=== PATIENT | female | born 1985 | race Caucasian/White ===

== ENCOUNTER 2018-01-02 17:50 | Emergency (ER) | payer OTHER ==
[~2018-01-02] VITALS: Ht 157.5 cm; Wt 63.6 kg
[~2018-01-02 17:50] MED LIST: COD30 PO; GUAI120S17 PO; IBUP-2354 PO
[2018-01-02] MEDS: LIDOCAINE HCL 1% 10 ML VIAL INJ ONE (20:05)
[2018-01-02] MEDS: POVIDONE-IODINE 10% 15 ML SOLUTION UD TP ONE (20:29)
[2018-01-02 21:29] VITALS: BP 147/88
== END 2018-01-02 21:55 | disposition home or self-care (01) ==
LOC: EMS 17:51
DX: L02.212 Cutaneous abscess of back [any part, except buttock and flank] (principal); L03.312 Cellulitis of back [any part except buttock and flank]
CPT/HCPCS: 10060; 99283; J3490

== ENCOUNTER 2018-01-04 13:28 | Emergency (ER) | payer OTHER ==
[~2018-01-04] VITALS: Ht 157.5 cm; Wt 80.0 kg
[2018-01-04] MEDS ORDERED: LIDOCAINE HCL 1% 10 ML VIAL INJ ONE (14:30)
[2018-01-04] MEDS ORDERED: CEPHALEXIN MONOHYDRATE 500 MG CAPSULE PO ONE (14:30)
[2018-01-04] MEDS ORDERED: SULFAMETHOX/TRIMETH DS 800-160 MG/TABLET PO ONE (14:30)
[2018-01-04] MEDS ORDERED: POVIDONE-IODINE 10% 15 ML SOLUTION UD TP ONE (14:45)
[2018-01-04 15:30] VITALS: BP 105/59
== END 2018-01-04 15:31 | disposition home or self-care (01) ==
LOC: EMS 13:34
DX: L02.212 Cutaneous abscess of back [any part, except buttock and flank] (principal); Z76.0 Encounter for issue of repeat prescription
CPT/HCPCS: 10060; 99283; J3490

== ENCOUNTER 2018-01-07 14:24 | Emergency (ER) | payer OTHER ==
[~2018-01-07] VITALS: Ht 152.4 cm; Wt 59.1 kg
[2018-01-07 17:08] VITALS: BP 131/74
== END 2018-01-07 17:23 | disposition home or self-care (01) ==
LOC: EMS 14:26
DX: Z48.00 Encounter for change or removal of nonsurgical wound dressing (principal)
CPT/HCPCS: 99281

== ENCOUNTER 2018-06-22 19:33 | Observation (INO) | payer OTHER ==
[~2018-06-22] VITALS: Ht 152.4 cm; Wt 69.9 kg
[2018-06-22 20:49] VITALS: BP 144/96
[2018-06-22] MEDS ORDERED: ASPI-556 PO (20:56)
[2018-06-22] MEDS ORDERED: PNV11TAB PO (20:57)
== END 2018-06-22 21:50 | disposition home or self-care (01) ==
LOC: EMS 19:33 → INTOOBSV 20:00 → 4S 20:00
PROVIDERS: ADMIT Obstetrics & Gynecology; ATTEND Obstetrics & Gynecology
DX: O36.8120 Decreased fetal movements, second trimester, not applicable or unspecified (principal); O99.342 Other mental disorders complicating pregnancy, second trimester; F41.9 Anxiety disorder, unspecified; Z3A.24 24 weeks gestation of pregnancy
CPT/HCPCS: 80307 ×8; 87077; 87086; G0378

== ENCOUNTER 2019-04-14 05:27 | Emergency (ER) | payer OTHER ==
[~2019-04-14] VITALS: Ht 152.4 cm; Wt 65.9 kg
[~2019-04-14 05:27] MED LIST changes: +ASPI-556 PO; -COD30 PO; -GUAI120S17 PO; -IBUP-2354 PO; +PNV11TAB PO
[2019-04-14 06:52] VITALS: BP 129/83
[2019-04-14] MEDS ORDERED: IBUPROFEN 400 MG TABLET PO ONE (07:00)
[2019-04-14] MEDS ORDERED: ACETAMINOPHEN 500 MG TABLET PO ONE (07:00)
== END 2019-04-14 07:55 | disposition home or self-care (01) ==
LOC: EMS 05:27
DX: S52.511A Displaced fracture of right radial styloid process, initial encounter for closed fracture (principal); W01.0XXA Fall on same level from slipping, tripping and stumbling without subsequent striking against object, initial encounter; Y93.89 Activity, other specified; Y92.89 Other specified places as the place of occurrence of the external cause; Y99.0 Civilian activity done for income or pay

== ENCOUNTER 2025-06-02 11:35 | Emergency (ER) | payer OTHER ==
[~2025-06-02] VITALS: Ht 152.4 cm; Wt 74.0 kg
[2025-06-02 11:43] VITALS: BP 135/87; PULSE 103; RESP 18; TEMP 98.2; O2SAT 98
[2025-06-02] MEDS: ACETAMINOPHEN 325 MG TABLET PO ONE (12:28)
[2025-06-02] MEDS: IBUPROFEN 600 MG TABLET PO ONE (12:29)
[2025-06-02] MEDS: CEPHALEXIN MONOHYDRATE 500 MG CAPSULE PO ONE (12:29)
[2025-06-02] MEDS ORDERED: CEPH-558 PO (12:39)
== END 2025-06-02 13:09 | disposition home or self-care (01) ==
LOC: EMS 11:35
DX: S62.91XB Unspecified fracture of right hand, initial encounter for open fracture (principal); L03.112 Cellulitis of left axilla; X58.XXXA Exposure to other specified factors, initial encounter; Y93.89 Activity, other specified; Y92.89 Other specified places as the place of occurrence of the external cause; Y99.8 Other external cause status
CPT/HCPCS: 99284; 73130-TC; Z7502; Z7610